=== PATIENT | male | born 1950 | race Two or more races ===

== ENCOUNTER 2020-07-01 18:51 | Emergency (ER) | payer BC ==
[~2020-07-01] VITALS: Ht 162.6 cm; Wt 97.0 kg
[2020-07-01 18:56] VITALS: BP 125/92
[2020-07-01] MEDS ORDERED: KETOROLAC 30MG/ML VIAL IM ONE (21:00)
[2020-07-01] MEDS ORDERED: HYDROCODONE/ACETAMINOPHEN 5/325MG TABLET PO ONE (21:00)
[2020-07-01] MEDS ORDERED: LIDOCAINE HCL 2% JELLY 5ML TOP ONE (21:00)
== END 2020-07-01 22:38 | disposition left against medical advice (07) ==
LOC: ER 18:51
DX: K64.8 Other hemorrhoids (principal); I10 Essential (primary) hypertension; E11.9 Type 2 diabetes mellitus without complications; E03.9 Hypothyroidism, unspecified
CPT/HCPCS: 93005; 96372; 99283; J1885